=== PATIENT | female | born 1990 | race Caucasian/White ===

== ENCOUNTER 2021-02-20 06:09 | Observation (INO) | payer OTHER ==
[~2021-02-20] VITALS: Ht 165.1 cm; Wt 106.6 kg
[2021-02-20 06:46] LABS: CALC OSMOLALITY 279 mosm/kg (275-300); CALCIUM 9.5 mg/dL (8.5-10.1); CARBON DIOXIDE 26.4 mmol/L (21.0-32.0); CHLORIDE - SERUM 103 mmol/L (98-107); CREATININE - SERUM 0.9 mg/dL (0.6-1.3); GLUCOSE 145 mg/dL (74-106); POTASSIUM - SERUM 4.4 mmol/L (3.5-5.1); SODIUM 138 mmol/L (136-145); UREA NITROGEN 15 mg/dL (7-18); eGFR NON AFRICAN AMERICAN 77 mL/min (90-120)
[2021-02-20 06:53] LABS: BASOPHILS 0.3 % (0-2); EOSINOPHILS 0.8 % (0-7); HEMATOCRIT 42.4 % (36.0-48.0); HEMOGLOBIN 13.3 g/dL (12-16); IMMATURE GRANULOCYTES 0.2 % (0-5); LYMPHOCYTE ABS# 2.83 10x3/uL (1.18-3.74); LYMPHOCYTES 27.5 % (15-50); MCH 27.5 pg (26.0-34.0); MCHC 31.4 g/dL (31.0-37.0); MCV 87.6 fL (80.0-100.0); MONOCYTES 5.1 % (2-11); NEUTROPHIL ABS# 6.81 10x3/uL (1.56-6.13); NEUTROPHILS 66.1 % (40-80); PLATELET COUNT 396 10x3/uL (130-400); RBC 4.84 10x6/uL (4.00-5.40); RDW 13.3 % (11.5-14.5); WBC 10.3 10x3/uL (4.8-10.8)
[2021-02-20 06:56] LABS: HCG SERUM NEGATIVE (NEGATIVE)
[2021-02-20] MEDS ORDERED: JARDIANCE10 MG (07:03)
[2021-02-20] MEDS ORDERED: XALATAN 0.0052.5 ML (07:04)
[2021-02-20] MEDS ORDERED: GLUCOTROL XL 1010 MG (07:05)
[2021-02-20] MEDS ORDERED: PRAVASTATIN SOD10 MG (07:05)
[2021-02-20] MEDS ORDERED: METOPROLOL TART50 MG (07:06)
[2021-02-20] MEDS ORDERED: MAG-OXIDE400 MG (07:06)
[2021-02-20] MEDS ORDERED: HYDROXYZINE HCL50 MG (07:07)
[2021-02-20] MEDS ORDERED: PROTONIX40 MG (07:07)
[2021-02-20] MEDS ORDERED: TOPAMAX50 MG (07:08)
[2021-02-20] MEDS ORDERED: ASCORBIC ACID500 MG (07:08)
[2021-02-20] MEDS ORDERED: ZESTRIL20 MG (07:09)
[2021-02-20] MEDS ORDERED: VITAMIN D325 MC1 (07:09)
[2021-02-20] MEDS ORDERED: ZOLOFT100 MG (07:10)
[2021-02-20] MEDS ORDERED: CINNAMON500 MG (07:10)
[2021-02-20] MEDS ORDERED: CLARITIN 10 MG10 MG (07:10)
[2021-02-20] MEDS ORDERED: METHOCARBAMOL750 MG (07:11)
[2021-02-20] MEDS ORDERED: GABAPENTIN300 MG (07:11)
[2021-02-20] MEDS ORDERED: ONDANSETRON ODT8 MG (07:12)
[2021-02-20] MEDS ORDERED: PHENERGAN25 M1 (07:12)
[2021-02-20] MEDS ORDERED: IMITREX50 MG (07:12)
[2021-02-20 07:23] VITALS: BMI 39.1
[2021-02-20 07:55] LABS: APTT 27.5 SECONDS (22.8-39.4); INR 1.04 (0.85-1.17); PROTIME 12.6 SECONDS (11.6-15.0)
--- NOTE | 2021-02-20 09:32 | NUR ---
0992 PT STATES SHE THINKS HER BLOOD SUGAR MAY BE DROPPING AND REQUESTS A BLOOD SUGAR CHECK. FSBS WAS 114. PT THEN EXPRESSED FEELING ANXIOUS ABOUT THE PROCEDURE.
[2021-02-20 11:32] VITALS: BP 104/53
[2021-02-20 14:08] LABS: HEMATOCRIT 39.7 % (36.0-48.0); HEMOGLOBIN 12.7 g/dL (12-16)
[2021-02-20 15:07] VITALS: BP 104/53; BMI 39.1
[2021-02-20 20:57] LABS: HEMATOCRIT 37.3 % (36.0-48.0); HEMOGLOBIN 11.9 g/dL (12-16)
[2021-02-20 21:00] VITALS: BP 110/66
[2021-02-21] VITALS: BP 130/58
[2021-02-21 03:52] LABS: BASOPHILS 0.7 % (0-2); EOSINOPHILS 0.7 % (0-7); HEMATOCRIT 37.7 % (36.0-48.0); HEMOGLOBIN 12.1 g/dL (12-16); MCH 27.2 pg (26.0-34.0); MCHC 32.2 g/dL (31.0-37.0); MEAN PLATELET VOLUME 8.8 fL (7.4-10.4); MONOCYTES 6.4 % (2-11); NEUTROPHILS 68.2 % (40-80); RBC 4.46 10x6/uL (4.00-5.40); RDW 13.7 % (11.5-14.5); WBC 8.3 10x3/uL (4.8-10.8)
[2021-02-21 04:00] VITALS: BP 128/80
[2021-02-21 04:01] LABS: MCV 84.6 fL (80.0-100.0); PLATELET COUNT 277 10x3/uL (130-400)
[2021-02-21 04:18] LABS: CALCIUM 9.1 mg/dL (8.5-10.1); CARBON DIOXIDE 28.6 mmol/L (21.0-32.0); CHLORIDE - SERUM 100 mmol/L (98-107); CREATININE - SERUM 0.8 mg/dL (0.6-1.3); MAGNESIUM - SERUM 2.1 mg/dL (1.8-2.4); POTASSIUM - SERUM 4.3 mmol/L (3.5-5.1); SODIUM 135 mmol/L (136-145); eGFR NON AFRICAN AMERICAN 89 mL/min (90-120)
[2021-02-21 04:20] LABS: CALC OSMOLALITY 281 mosm/kg (275-300); GLUCOSE 259 mg/dL (74-106); UREA NITROGEN 22 mg/dL (7-18)
--- NOTE | 2021-02-21 07:40 | NUR ---
Sitting up in bed, awake/alert/oriented with some confusion voiced when near strangers, T/R self ad jose luis, cont of B/B with pericare provided with daily bath and PRN, denies pain/other discomfort at this time, family member at bedise is sleeping, no s/s of acute distress are observed/reported at this time.
[2021-02-21 08:01] VITALS: BP 104/66
[2021-02-21 12:00] VITALS: BP 102/61
[2021-02-21 13:19] VITALS: Ht 165.1 cm; Wt 106.6 kg
--- NOTE | 2021-02-21 13:47 | NUR ---
Provided written/verbal discharge instructions to which pt and family member stated understanding, discontinued IV access at this time.
--- NOTE | 2021-02-21 14:03 | NUR ---
Discharged home to self care in stable condition via w/c accompanied by hospital staff and family member, no s/s of acute distress observed.
== END 2021-02-21 14:03 | disposition home or self-care (01) ==
LOC: D.OPS 06:09 → D.SP 10:00 → D.RAD 10:00 → D.M2 11:27 → OBSVTIME 13:17 → D.OPS 13:17 → D.M2 02-21 14:03
PROVIDERS: Anesthesiology; Specialist; ADMIT Internal Medicine; ATTEND Internal Medicine
DX: R80.9 Proteinuria, unspecified (principal); E11.9 Type 2 diabetes mellitus without complications; Z79.84 Long term (current) use of oral hypoglycemic drugs